=== PATIENT | female | born 1985 | race African-American/Black ===

== ENCOUNTER 2017-02-04 16:19 | Emergency (ER) | payer OTHER ==
[~2017-02-04] VITALS: Ht 167.6 cm; Wt 66.0 kg
[~2017-02-04 16:19] MED LIST: ERYT1O EACH EYE; POLY10O EACH EYE
[2017-02-04 16:21] VITALS: BP 123/77; PULSE 105; RESP 12; TEMP 98.8; O2SAT 100
== END 2017-02-04 21:28 | disposition left against medical advice (07) ==
LOC: NED 16:19
DX: R10.9 Unspecified abdominal pain (principal); Z53.21 Procedure and treatment not carried out due to patient leaving prior to being seen by health care provider
CPT/HCPCS: 99281

== ENCOUNTER 2017-02-28 16:18 | Emergency (ER) | payer OTHER ==
[2017-02-28 16:20] VITALS: BP 110/64; PULSE 116; RESP 12; TEMP 101.8; O2SAT 99
[2017-02-28 17:36] LABS: AUTOMATED NEUTROPHIL # 6.4 TH/MM3 (1.8-7.7); BASOPHIL % 0.5 % (0.0-2.0); EOSINOPHIL # 0.1 TH/MM3 (0-0.4); EOSINOPHIL % 0.8 % (0.0-4.0); HEMATOCRIT 32.8 % (35.0-46.0); HEMO FLAGS DIFF FINAL; LYMPH % 13.8 % (9.0-44.0); LYMPHOCYTE # 1.2 TH/MM3 (1.0-4.8); MEAN CELL VOLUME 83.8 FL (80.0-100.0); MEAN CORPUSCULAR HEMOGLOBIN 29.1 PG (27.0-34.0); MEAN CORPUSCULAR HGB CONC 34.7 % (32.0-36.0); MONO % 9.1 % (0.0-8.0); NEUT % 75.8 % (16.0-70.0); PLATELET COUNT 322 TH/MM3 (150-450); RED BLOOD COUNT 3.92 MIL/MM3 (4.00-5.30); RED CELL DISTRIBUTION WIDTH 14.4 % (11.6-17.2); WHITE BLOOD COUNT 8.4 TH/MM3 (4.0-11.0)
[2017-02-28 17:44] LABS: APTT (PATIENT) 31.1 SEC (24.3-30.1); PROTHROMBIN TIME - PATIENT 11.3 SEC (9.8-11.6)
[2017-02-28 17:50] LABS: BACTERIA, URINE MOD /hpf; BLOOD, URINE MOD (NEG); GLUCOSE,URINE NEG (NEG); HYALINE CAST, URINE 3 /lpf (RARE); KETONE, URINE 10 mg/dL (NEG); MUCUS URINE FEW /lpf (OCC); NITRITE,URINE POS (NEG); PH, URINE 5.5 (5.0-8.5); SQUAMOUS EPITHELIAL CELL URINE <1 /hpf (0-5); URINE COLOR YELLOW (YELLW/STRAW)
[2017-02-28 17:53] LABS: COMMENT (UR) CATH-CULTURE IND; CULTURE IF INDICATED CATH CULTURE IND
[2017-02-28 18:01] LABS: ALT (GPT) 18 U/L (10-53); ANION GAP 8 MEQ/L (5-15); AST (GOT) 9 U/L (15-37); BICARBONATE 27.1 MEQ/L (21.0-32.0); BLOOD UREA NITROGEN 7 MG/DL (7-18); CHLORIDE 99 MEQ/L (98-107); GLOMERULAR FILTRATION RATE 93 ML/MIN (>89); SODIUM (NA) 134 MEQ/L (136-145)
[2017-02-28 18:03] LABS: ALKALINE PHOSPHATASE 58 U/L (45-117); TOTAL BILIRUBIN ADULT 0.5 MG/DL (0.2-1.0)
--- NOTE | 2017-02-28 18:14 | RADRPT ---
EXAM DATE/TIME: 02/28/2017 17:55 [place] COMPARISON: No previous studies available for comparison. INDICATIONS : Fever, headache and neck pain MEDICAL HISTORY : None. SURGICAL HISTORY : None. ENCOUNTER: Initial ACUITY: 4 - 6 days PAIN SCORE: 0/10 LOCATION: chest FINDINGS: PA and lateral views of the chest demonstrate the lungs to be symmetrically aerated without evidence of mass, infiltrate or effusion. The cardiomediastinal contours are unremarkable. Osseous structure s are intact. CONCLUSION: No acute cardiopulmonary process. Babatunde Francis MD on February 28, 2017 at 18:11 Board Certified Radiologist. This report was verified electronically.
[2017-02-28] MEDS ORDERED: SODIUM CHLOR 0.9% 1000 ML INJ 1,000 ML IV SCH (18:26)
[2017-02-28] MEDS ORDERED: ONDANSETRON HCL 4 MG/2 ML VIAL IVP ONE (18:30)
[2017-02-28] MEDS ORDERED: ACETAMINOPHEN 500 MG CPLT PO ONE (18:30)
[2017-02-28 18:44] VITALS: PULSE 93; RESP 16; O2SAT 100
[2017-02-28] MEDS ORDERED: cefTRIAXone INJ 1,000 MG in SODIUM CHLORIDE 0.9% INJ 100 ML IV ONE (18:45)
--- NOTE | 2017-02-28 19:06 | PD ---
HPI Chief Complaint: Cold / Flu Symptoms Time Seen by Provider: 18:09 Travel History International Travel<30 days: No Contact w/Intl Traveler<30days: No Traveled to known affect area: No History of Present Illness HPI 31 YO F presents to the ED for evaluation of 4 day history of chills, body aches , abdominal cramping, full sensation of the bladder. Patient endorses associated nausea. She endorses urinary urgency with low urine output. She states that she has had a posterior headache today. Headache worsened by range of motion of the neck. She endorses chills today. She denies vision changes, dizziness, shortness of breath, chest pain, cough, vaginal discharge, vaginal odor, back pain. She denies risk of , states that she has an IUD and is currently menstruating. She treated with Advil PM with no improvement in her symptoms. PFSH Past Medical History Diminished Hearing: No Immunizations Current: Yes Tetanus Vaccination: > 5 Years Influenza Vaccination: No ?: Not LMP: CURRENT Past Surgical History Surgical History: No Previous Surgery Abdominal Surgery: Yes ( ) Section: Yes Social History Alcohol Use: No Tobacco Use: No Substance Use: Yes (THC OCCASIONAL ) Allergies-Medications (Allergen,Severity, Reaction): Coded Allergies: No Known Allergies (Verified Allergy, Unknown, 02/28/17) Reported Meds & Prescriptions Reported Meds & Active Scripts Active Macrobid (Nitrofurantoin Monoh/Nitrofur Macro) 100 Mg Cap 100 Mg PO BID 7 Days Review of Systems Except as stated in HPI: all other systems reviewed are Neg Physical Exam Narrative GENERAL: Well-nourished, well-developed nontoxic-appearing black female in no acute distress. SKIN: Focused skin assessment warm/dry. HEAD: Normocephalic. EYES: No scleral icterus. No injection or drainage. NECK: Supple, trachea midline. No JVD or lymphadenopathy. No midline tenderness to palpation. No nuchal rigidity. CARDIOVASCULAR: Regular rate and rhythm without murmurs, gallops, or rubs. RESPIRATORY: Breath sounds clear and equal bilaterally. No accessory muscle use. GASTROINTESTINAL: Abdomen soft, nondistended. Tender to palpation in the suprapubic region. Active bowel sounds. MUSCULOSKELETAL: No cyanosis, or edema. BACK: Nontender without obvious deformity. No CVA tenderness. Data Data Last Documented VS Vital Signs Date Time Temp Pulse Resp B/P (MAP) Pulse Ox O2 Delivery O2 Flow Rate FiO2 02/28/17 21:06 02/28/17 20:31 89 20 100 Room Air 02/28/17 16:20 101.8 Orders Orders Sepsis Workup Initiated (02/28/17 ) Complete Blood Count With Diff (02/28/17 16:44) Comprehensive Metabolic Panel (02/28/17 16:44) Prothrombin Time / Inr (Pt) (02/28/17 16:44) Act Partial Throm Time (Ptt) (02/28/17 16:44) Lactic Acid Sepsis Protocol (02/28/17 16:44) Urinalysis - C+S If Indicated (02/28/17 16:44) Influenzae A/B Antigen (02/28/17 16:44) Blood Culture (02/28/17 16:44) Chest, Pa & Lat (02/28/17 16:44) Ed Urine Pregnancytest Poc (02/28/17 16:44) Urine Culture (02/28/17 16:55) Iv Access Insert/Monitor (02/28/17 18:26) Ecg Monitoring (02/28/17 18:26) Oximetry (02/28/17 18:26) Ondansetron Inj (Zofran Inj) (02/28/17 18:30) Sodium Chlor 0.9% 1000 Ml Inj (Ns 1000 M (02/28/17 18:26) Acetaminophen (Tylenol) (02/28/17 18:30) Ceftriaxone Inj (Rocephin Inj) (02/28/17 18:45) Potassium Chloride (Kcl) (02/28/17 19:30) Ed Discharge Order (02/28/17 20:18) Labs Laboratory Tests Test 02/28/17 16:55 02/28/17 17:03 Urine Color YELLOW Urine Turbidity HAZY Urine pH 5.5 Urine Specific [place] 1.009 Urine Protein 30 mg/dL Urine Glucose (UA) NEG mg/dL Urine Ketones 10 mg/dL Urine Occult Blood MOD Urine Nitrite POS Urine Bilirubin NEG Urine Urobilinogen LESS THAN 2.0 MG/DL Urine Leukocyte Esterase LARGE Urine RBC 9 /hpf Urine WBC 152 /hpf Urine WBC Clumps FEW Urine Squamous Epithelial Cells <1 /hpf Urine Bacteria MOD /hpf Urine Hyaline Casts 3 /lpf Urine Mucus FEW /lpf Microscopic Urinalysis Comment CATH-CULTURE IND White Blood Count 8.4 TH/MM3 Red Blood Count 3.92 MIL/MM3 Hemoglobin 11.4 GM/DL Hematocrit 32.8 % Mean Corpuscular Volume 83.8 FL Mean Corpuscular Hemoglobin 29.1 PG Mean Corpuscular Hemoglobin Concent 34.7 % Red Cell Distribution Width 14.4 % Platelet Count 322 TH/MM3 Mean Platelet Volume 8.1 FL Neutrophils (%) (Auto) 75.8 % Lymphocytes (%) (Auto) 13.8 % Monocytes (%) (Auto) 9.1 % Eosinophils (%) (Auto) 0.8 % Basophils (%) (Auto) 0.5 % Neutrophils # (Auto) 6.4 TH/MM3 Lymphocytes # (Auto) 1.2 TH/MM3 Monocytes # (Auto) 0.8 TH/MM3 Eosinophils # (Auto) 0.1 TH/MM3 Basophils # (Auto) 0.0 TH/MM3 CBC Comment DIFF FINAL Differential Comment Prothrombin Time 11.3 SEC Prothromb Time International Ratio 1.0 RATIO Activated Partial Thromboplast Time 31.1 SEC Blood Urea Nitrogen 7 MG/DL Creatinine 0.87 MG/DL Random Glucose 86 MG/DL Total Protein 8.3 GM/DL Albumin 3.5 GM/DL Calcium Level 8.6 MG/DL Alkaline Phosphatase 58 U/L Aspartate Amino Transf (AST/SGOT) 9 U/L Alanine Aminotransferase (ALT/SGPT) 18 U/L Total Bilirubin 0.5 MG/DL Sodium Level 134 MEQ/L Potassium Level 3.0 MEQ/L Chloride Level 99 MEQ/L Carbon Dioxide Level 27.1 MEQ/L Anion Gap 8 MEQ/L Estimat Glomerular Filtration Rate 93 ML/MIN Lactic Acid Level 1.1 mmol/L [facility] Medical Decision Making Medical Screen Exam Complete: Yes Emergency Medical Condition: Yes Differential Diagnosis Cystitis versus pyelonephritis versus versus cephalgia versus other Narrative Course 31 YO F presents to the ED for evaluation of 4 day history of chills, body aches , abdominal cramping, full sensation of the bladder. Patient endorses associated nausea, urinary urgency with low urine output. She endorses chills and posterior headache today. She denies risk of , states that she has an IUD and is currently menstruating. Patient's febrile, temperature 101.8 , pulse 116 on presentation. Physical exam reveals a nontoxic-appearing black female in no acute distress. There is some mild suprapubic tenderness but the remaining physical exam is otherwise unremarkable. Sepsis workup was initiated in triage. Blood cultures were obtained. IV was established. Patient was administered a gram of Tylenol by mouth, 1 L normal saline and 4 mg Zofran IV. WBC 8.4. Hemoglobin 11.4. BUN 7, creatinine 0.87. Potassium 3.0 Lactic 1.8 UA: Hazy, nitrite positive. Moderate occult blood. Large leukocyte esterase. 152 wbc's, few clumps. Moderate bacteria. Culture pending. Patient was administered 1 g Rocephin IV and 40 mEq potassium by mouth. On recheck patient is sleeping, reports improvement of her symptoms. This is UTI. Patient was prescribed Macrobid 100 mg twice a day 7 days. She is instructed to take all the medication as prescribed, continue with Tylenol as needed for fever, follow-up with her primary care provider, return for worsening symptoms. Patient indicated understanding of instructions and is agreeable with this care plan. She is stable and discharged home. Diagnosis Primary Impression: Urinary tract infection Qualified Codes: N30.01 - Acute cystitis with hematuria Referrals: Primary Care Physician Patient Instructions: General Instructions, Urinary Tract Infection in Women ( ED) Additional Instructions: Rest, hydrate. Return to normal, gentle activities as tolerated. Tickle antibiotics as prescribed, even if her symptoms resolve. Take [id number] medications as described on the label, as needed, for continued pain. Follow-up with the primary care provider. Return to the ED for any urgent or emergent medical condition. Med/Other Pt SpecificInfo: Prescription(s) given Scripts Nitrofurantoin Monohydrate Macrocrystals (Macrobid) 100 Mg Cap 100 MG PO BID for Infection for 7 Days, #14 CAP 0 Refills Prov: Evonne Clifton MD 02/28/17 Disposition: 01 DISCHARGE HOME Condition: Stable Estefany Brantley Feb 28, 2017 19:06
[2017-02-28] MEDS ORDERED: POTASSIUM CHLORIDE 20 MEQ CONTROLLED RELEASE TAB PO ONE (19:30)
[2017-02-28] MEDS ORDERED: MACR100C2 PO (20:17)
[2017-02-28 20:31] VITALS: BP 97/61; PULSE 89; RESP 20; O2SAT 100
== END 2017-02-28 21:08 | disposition home or self-care (01) ==
LOC: NEPC 16:18
DX: N39.0 Urinary tract infection, site not specified (principal); B96.20 Unspecified Escherichia coli [E. coli] as the cause of diseases classified elsewhere; R11.0 Nausea; R51 Headache
CPT/HCPCS: 71020; 80053; 81001; 83605; 84703; 85025; 85610; 85730; 87040; 87077; 87086; 87186; 87804; 96361; 96374; 96375; 99284; J0696; J2405; J7030

== ENCOUNTER 2017-12-09 09:18 | Observation (INO) ==
[2017-12-09] MEDS ORDERED: Acetaminophen 325 MG Tablet PO ONE (09:38)
[2017-12-09] MEDS ORDERED: Sod Chloride 0.9% Inj 1,000 ML IV.SIG SCH ×2 (09:45→10:45)
--- NOTE | 2017-12-09 10:17 | XR ---
EXAM DATE: 12/09/2017 10:12 AM EDT AGE/SEX: 32 years / Female INDICATIONS: Sickle cell crisis. Fever, body pains, nausea. CLINICAL DATA: This is the patient's initial encounter. Patient reports that signs and symptoms have been present for 1 day and indicates a pain score of 10/10. MEDICAL/SURGICAL HISTORY: Sickle Cell disease. None. COMPARISON: [facility] [place], CHEST PA & LAT, 02/28/2017. . FINDINGS: A single AP view of the chest demonstrates the lungs to be symmetrically aerated without evidence of mass, infiltrate or effusion. The cardiomediastinal contours are unremarkable. Osseous structures a re intact. CONCLUSION: No acute cardiopulmonary disease. Electronically signed by: Buster Niño MD 12/09/2017 10:16 AM EDT
[2017-12-09 10:24] LABS: Baso # (Auto) 0.2 th/mm3 (0.0-0.2); Baso % (Auto) 0.7 % (0.0-2.0); Eos % (Auto) 0.1 % (0.0-4.0); Hematocrit 34.1 % (35.0-46.0); Hemoglobin 11.7 gm/dL (11.6-15.3); Lymph # (Auto) 0.5 th/mm3 (1.0-4.8); Lymph % (Auto) 2.3 % (9.0-44.0); Mean Corpuscular HGB Conc 34.4 % (32.0-36.0); Mean Corpuscular Hemoglobin 28.9 pg (27.0-34.0); Mean Platelet Volume 7.9 fL (7.0-11.0); Mono # (Auto) 1.2 th/mm3 (0.0-0.9); Mono % (Auto) 5.2 % (0.0-8.0); Neut # (Auto) 20.4 th/mm3 (1.8-7.7); Neut % (Auto) 91.7 % (16.0-70.0); Platelet Count 276 th/mm3 (150-450); Red Blood Count 4.06 mil/mm3 (4.00-5.30); Red Cell Distribution Width 13.7 % (11.6-17.2); White Blood Count 22.2 th/mm3 (4.0-11.0)
[2017-12-09 10:29] LABS: Bacteria,Urine Many /hpf; Bilirubin,Urine Negative (Negative); Clarity,Urine Cloudy (Clear); Color,Urine Yellow (Yellw/Straw); Glucose,Urine (UA) Negative (Negative); Leukocyte Esterase,Urine Large (Negative); Nitrite,Urine Negative (Negative); Specific Gravity,Urine 1.012 (1.002-1.035); Squamous Epithelial Cell,Urine 1 /hpf (0-5); Transitional Epi Cells,Urine 1 /hpf
[2017-12-09] MEDS ORDERED: Vancomycin Inj 1,000 MG in Sodium Chlor 0.9% Inj 250 ML IV.SIG STA (10:34)
[2017-12-09] MEDS ORDERED: Piperacil/Tazo 4.5 GM Premix 4.5 GM/100 ML BAG IV.SIG STA (10:34)
[2017-12-09 10:53] LABS: Alanine Aminotransferase 15 U/L (10-53); Albumin 3.3 g/dL (3.4-5.0); Anion Gap 13 meq/L (5-15); Aspartate Aminotransferase 14 U/L (15-37); Blood Urea Nitrogen 8 mg/dL (7-18); Calcium 8.5 mg/dL (8.5-10.1); Carbon Dioxide 22.2 meq/L (21.0-32.0); Chloride 100 meq/L (98-107); Glomerular Filtration Rate 64 mL/min (>89); Glucose,Random 108 mg/dL (74-106); Potassium 3.4 meq/L (3.5-5.1); Sodium 135 meq/L (136-145)
[2017-12-09 10:55] LABS: Alkaline Phosphatase 70 U/L (45-117); Total Protein 8.1 g/dL (6.4-8.2)
--- NOTE | 2017-12-09 12:21 | ED ---
HPI General Chief Complaint: Fever Stated Complaint: Pain All Over Time Seen by Provider: 12/09/17 09:34 Source: patient Mode of arrival: ambulatory Limitations: no limitations History of Present Illness HPI Narrative: Patient is a 32-year-old female who presents to the emergency room with complaints of fevers and chills. Patient reports that 3 days ago, she began to have her period, patient reports that since then she has not been feeling well. Patient reports that she feels weak all over, reports that she has been having body aches, reports that she did have nausea. Patient reports that she is also been having mild headaches, no neck pain, denies any chest pain or shortness of breath, denies any abdominal pain, denies being around any sick contacts. Denies any cough or congestion. Patient denies any recent travels or trips, patient with no other complaints. Related Data Home Medications Medication Instructions Recorded Confirmed No Known Home Medications 12/09/17 12/09/17 Allergies Allergy/AdvReac Type Severity Reaction Status Date / Time No Known Allergies Allergy Unknown Uncoded 02/28/17 18:51 Review of Systems ROS: all other systems reviewed are negative [facility] Medical History Medical History Patient denies medical problems (Acute) Surgical History Surgical History Previous section (Acute) Social History Social History Substance History: No History of Abuse Smoking Status: Never smoker How Often Do You Have a Drink Containing Alcohol: Never Recent Travel in [facility] within the Last 8 Weeks: No Recent Out of Country Travel within the Last 8 Weeks: No Immunization History Tetanus Immunization: >5 Years Exam Narrative Exam Narrative: GENERAL: moderate distress SKIN: Focused skin assessment warm/dry. HEAD: Atraumatic. Normocephalic. EYES: Pupils equal and round. No scleral icterus. No injection or drainage. ENT: No nasal bleeding or discharge. Mucous membranes pink and moist. NECK: Trachea midline. No JVD. CARDIOVASCULAR: tachycardic. No murmur appreciated. RESPIRATORY: No accessory muscle use. Clear to auscultation. Breath sounds equal bilaterally. GASTROINTESTINAL: Abdomen soft, non-tender, nondistended. Hepatic and splenic margins not palpable. MUSCULOSKELETAL: No obvious deformities. No clubbing. No cyanosis. No edema. NEUROLOGICAL: Awake and alert. No obvious cranial nerve deficits. Motor grossly within normal limits. Normal speech. PSYCHIATRIC: Appropriate mood and affect; insight and judgment normal. Course Initial Documented Vital Signs Temperature 102.8 F H 12/09/17 09:21 Pulse Rate 135 H 12/09/17 09:21 Respiratory Rate 20 12/09/17 09:21 Blood Pressure 119/69 12/09/17 09:21 Pulse Oximetry 99 12/09/17 09:21 Last Documented Vital Signs Temperature 99.9 F H 12/09/17 12:29 Pulse Rate 102 H 12/09/17 12:29 Respiratory Rate 20 12/09/17 12:29 Blood Pressure 90/54 L 12/09/17 12:29 Pulse Oximetry 100 12/09/17 12:29 Medical Decision Making MDM Narrative Medical decision making narrative: During the course of the patients emergency department visit, the patients history, examination, and differential diagnosis were reviewed with the patient. The patient was placed on a pick up man with oximetry and frequent blood pressure monitoring. The patient had an IV access obtained and blood work sent for analysis. The patient was initially provided IV fluids as well as Tylenol. Patient does have a 22,000 white blood cell count, she is tachycardic with a heart rate 125 and a temperature of 102.8, patient meets SIRS criteria, she has been pancultured, she does not have a clear source of infection. lactic acid UA positive for large leuk esterase Patient was given Zosyn as well as vancomycin initially as she had SIRS criteria , her ua is positive for a UTI - patient with most likely urosepsis - she will require admission to the hospital for IV antibiotics. Case reviewed with Dr. Esteban who accepts pt to service Medical Screen Exam Complete: Yes Emergency Medical Condition: Yes Differential Diagnosis Differential Diagnosis: uti, Lab Data Result diagrams: 12/09/17 10:00 12/09/17 10:00 POC Results POC Urine Results Negative Lab Results 12/09/17 12/09/17 12/09/17 Range/Units 10:00 10:00 10:03 WBC 22.2 H (4.0-11.0) th/mm3 RBC 4.06 (4.00-5.30) mil/mm3 Hgb 11.7 (11.6-15.3) gm/dL Hct 34.1 L (35.0-46.0) % MCV 84.0 (80.0-100.0) fL MCH 28.9 (27.0-34.0) pg MCHC 34.4 (32.0-36.0) % RDW 13.7 (11.6-17.2) % Plt Count 276 (150-450) th/mm3 MPV 7.9 (7.0-11.0) fL Neut % (Auto) 91.7 H (16.0-70.0) % Lymph % (Auto) 2.3 L (9.0-44.0) % [place] % (Auto) 5.2 (0.0-8.0) % Eos % (Auto) 0.1 (0.0-4.0) % Baso % (Auto) 0.7 (0.0-2.0) % Neut # (Auto) 20.4 H (1.8-7.7) th/mm3 Lymph # (Auto) 0.5 L (1.0-4.8) th/mm3 [place] # (Auto) 1.2 H (0.0-0.9) th/mm3 Eos # (Auto) 0.0 (0.0-0.4) th/mm3 Baso # (Auto) 0.2 (0.0-0.2) th/mm3 WBC Differential . Differential Comment Auto diff final Sodium 135 L (136-145) meq/L Potassium 3.4 L (3.5-5.1) meq/L Chloride 100 (98-107) meq/L Carbon Dioxide 22.2 (21.0-32.0) meq/L Anion Gap 13 (5-15) meq/L BUN 8 (7-18) mg/dL Creatinine 1.19 H (0.50-1.00) mg/dL Estimated GFR 64 L (>89) mL/min POC Glucose 116 H (68-110) mg/dl Random Glucose 108 H (74-106) mg/dL Lactic Acid (0.4-2.0) mmol/L Calcium 8.5 (8.5-10.1) mg/dL Total Bilirubin 0.7 (0.2-1.0) mg/dL AST 14 L (15-37) U/L ALT 15 (10-53) U/L Alkaline Phosphatase 70 (45-117) U/L Total Protein 8.1 (6.4-8.2) g/dL Albumin 3.3 L (3.4-5.0) g/dL Urine Color (Yellw/Straw) Urine Clarity (Clear) Urine pH (5.0-8.5) Ur Specific [place] (1.002-1.035) Urine Protein (Neg-Trace) mg/dL Urine Glucose (UA) (Negative) mg/dL Urine Ketones (Negative) mg/dL Urine Occult Blood (Negative) Urine Nitrate (Negative) Urine Bilirubin (Negative) Urine Urobilinogen (Less than 2) mg/dL Ur Leukocyte Esterase (Negative) Urine RBC (0-3) /hpf Urine WBC (0-5) /hpf Urine WBC Clumps (None) Ur Squamous Epith Cells (0-5) /hpf Ur Transition Epith Cell (None) /hpf Urine Bacteria (None) /hpf Micro UA Comment Ur Microscopic Review Urine Culture Comments 12/09/17 12/09/17 Range/Units 10:05 10:05 WBC (4.0-11.0) th/mm3 RBC (4.00-5.30) mil/mm3 Hgb (11.6-15.3) gm/dL Hct (35.0-46.0) % MCV (80.0-100.0) fL MCH (27.0-34.0) pg MCHC (32.0-36.0) % RDW (11.6-17.2) % Plt Count (150-450) th/mm3 MPV (7.0-11.0) fL Neut % (Auto) (16.0-70.0) % Lymph % (Auto) (9.0-44.0) % [place] % (Auto) (0.0-8.0) % Eos % (Auto) (0.0-4.0) % Baso % (Auto) (0.0-2.0) % Neut # (Auto) (1.8-7.7) th/mm3 Lymph # (Auto) (1.0-4.8) th/mm3 [place] # (Auto) (0.0-0.9) th/mm3 Eos # (Auto) (0.0-0.4) th/mm3 Baso # (Auto) (0.0-0.2) th/mm3 WBC Differential Differential Comment Sodium (136-145) meq/L Potassium (3.5-5.1) meq/L Chloride (98-107) meq/L Carbon Dioxide (21.0-32.0) meq/L Anion Gap (5-15) meq/L BUN (7-18) mg/dL Creatinine (0.50-1.00) mg/dL Estimated GFR (>89) mL/min POC Glucose (68-110) mg/dl Random Glucose (74-106) mg/dL Lactic Acid 1.3 (0.4-2.0) mmol/L Calcium (8.5-10.1) mg/dL Total Bilirubin (0.2-1.0) mg/dL AST (15-37) U/L ALT (10-53) U/L Alkaline Phosphatase (45-117) U/L Total Protein (6.4-8.2) g/dL Albumin (3.4-5.0) g/dL Urine Color Yellow (Yellw/Straw) Urine Clarity Cloudy H (Clear) Urine pH 5.0 (5.0-8.5) Ur Specific [place] 1.012 (1.002-1.035) Urine Protein 100 H (Neg-Trace) mg/dL Urine Glucose (UA) Negative (Negative) mg/dL Urine Ketones 80 or greater H (Negative) mg/dL Urine Occult Blood Large H (Negative) Urine Nitrate Negative (Negative) Urine Bilirubin Negative (Negative) Urine Urobilinogen Less than 2 (Less than 2) mg/dL Ur Leukocyte Esterase Large H (Negative) Urine RBC 43 H (0-3) /hpf Urine WBC (0-5) /hpf Urine WBC Clumps Many H (None) Ur Squamous Epith Cells 1 (0-5) /hpf Ur Transition Epith Cell 1 (None) /hpf Urine Bacteria Many H (None) /hpf Micro UA Comment Culture indicated Ur Microscopic Review Not Reportable Urine Culture Comments Culture indicated Imaging Data Radiologist's impression: Chest X-Ray 12/09/17 09:39 CONCLUSION: No acute cardiopulmonary disease. Discharge Plan Discharge Disposition Patient Disposition: 32 Still Patient Discharge Condition Condition: Serious Discharge Details Diagnosis: Sepsis Physicians Team ED Provider: Jennifer Mercado Primary Care Provider: Primary Care Physici,No Rxs /Orders / Referrals /Forms Prescriptions: No Action No Known Home Medications RF: 0 Status ED Status: With Doctor
[2017-12-09] MEDS: Heparin - SQ 10,000 UNITS/ML Vial SQ SCH (14:23)
[2017-12-09] MEDS: Sod Chloride 0.9% Inj 1,000 ML IV.CONT SCH (14:24)
--- NOTE | 2017-12-09 15:04 | P.HPIM ---
History of Present Illness Primary Care Physician: No Primary Care Physician Chief Complaint: Dysuria, suprapubic pain History of Present Illness: This patient is a 40-year-old female with a past medical history of sickle cell trait. She has a history of multiple UTIs and was previously seen at our facility in February 2017. At that time the patient's urine culture grew ESBL E. coli. She presents to our emergency department today with 3 day history of dysuria and mild suprapubic pain. She states that her symptoms began during her menstrual cycle. She will she states that she is sexually active with one partner and her symptoms usually begin a couple of days after intercourse. She also reports fevers and feeling weak. She denies any diarrhea or cough. She denies any pain in her extremities. She has also had poor appetite over the past few days because of her symptoms. Inpatient Certification: I certify that the inpatient services were ordered in accordance with Medicare regulations governing the order. This includes certification that hospital inpatient services are reasonable and necessary and in the case of services not specified as inpatient-only under 42 CFR 419.22(n), that they are appropriately provided as inpatient services in accordance to with the 2-midnight benchmark under 43 CFR 412.3(e) Review of Systems All other systems reviewed negative except as stated in HPI PMFSH - History History Provided By: Patient - Medical / Surgical Hx Neg / Unobtainable Medical Problems Denied: Yes - Medical History Medical History: Medical History (Last Reviewed 12/09/17 @ 12:19 by Jennifer Mercado) Patient denies medical problems - Surgical History Surgical History: Surgical History (Last Reviewed 12/09/17 @ 12:19 by Jennifer Mercado) Previous section - Family History Family History: Family History (Last Updated 12/09/17 @ 15:18 by Nella Pinzon MD) Other Family history of diabetes mellitus Family history of hypertension - Tobacco History Second Hand Smoke Exposure: No Tobacco Use In Past 30 Days: No Smoking Status: Never smoker - Alcohol History How Often Do You Have a Drink Containing Alcohol: Never - Substance Use History Substance History: No History of Abuse - Travel History Recent Travel in the [place] Within the Last 8 Weeks: No Recent Travel Out of the Country Within the Last 8 Weeks: No - Immunization History Tetanus Immunization: >5 Years Medications and Allergies Active Medications: Active Medications Acetaminophen (Tylenol) 650 mg PO Q4H PRN PRN Reason: PAIN 1-10 AND/OR FEVER >101F Al Hydroxide/Mg Hydroxide (Milk Of Gustabo Rodriguez) 30 ml PO Q12H PRN PRN Reason: Mild Constipation Heparin Sodium (Porcine) (Heparin Inj) 5,000 units SQ Q12H [place] Last Admin: 12/09/17 14:23 Dose: 5,000 units Sodium Chloride (Ns Inj) 1,000 mls @ 0 mls/hr IV.SIG BOLUS [place] Stop: 12/10/17 09:46 Last Infusion: 12/09/17 11:12 Dose: Infused Sodium Chloride (Ns Inj) 1,000 mls @ 0 mls/hr IV.SIG BOLUS [place] Last Infusion: 12/09/17 12:28 Dose: Infused Sodium Chloride (Ns Inj) 1,000 mls @ 100 mls/hr IV.CONT .Q10H [place] Last Admin: 12/09/17 14:24 Dose: 100 mls/hr Ceftriaxone Sodium 1,000 mg/ (Sodium Chloride) 100 mls @ 200 mls/hr IV.SIG Q24H [place] Lactobacillus Acidophilus (Lactinex) 1 tab PO TID [place] Ondansetron HCl (Zofran Inj) 4 mg IV.PUSH Q6H PRN PRN Reason: NAUSEA OR VOMITING Allergies Allergy/AdvReac Type Severity Reaction Status Date / Time No Known Allergies Allergy Unknown Uncoded 02/28/17 18:51 Home Medications Medication Instructions Recorded Confirmed Type No Known Home Medications 12/09/17 12/09/17 History Exam Vital signs: Vital Signs 12/09/17 09:21 12/09/17 10:12 12/09/17 12:29 Temperature 102.8 F H 99.9 F H Pulse Rate 135 H 125 H 102 H Respiratory Rate 20 24 20 Blood Pressure 119/69 111/68 90/54 L Pulse Oximetry 99 100 100 Intake & Output 12/08/17 12/09/17 12/09/17 18:59 06:59 18:59 Intake Total 2350 / 2350 Balance 2350 / 2350 Weight 68.039 kg Intake: IV 2350 / 2350 Zosyn 4.5 GM Premix 4.5 gm In 100 / 100 100 ml @ 200 mls/hr IV.SIG STAT [facility] Rx#:[id number] NS Inj 1,000 ML @ Wide Open IV. 2000 / 2000 SIG BOLUS [place] Rx#:[id number] Vancomycin Inj 1,000 MG In NS 250 / 250 Inj 250 ML @ 250 mls/hr IV.SIG STAT ST[facility] Rx#:[id number] Narrative: General patient in no acute distress HEENT extraocular movements are intact, clear oropharyngeal mucosa, no JVD Cardiovascular S1-S2 audible, RRR, tachycardic Respiratory clear to auscultation bilaterally Abdomen soft, mild suprapubic pain, nondistended, normal bowel sounds, no CVA tenderness Extremities no edema 2+ distal pulses in bilateral upper and lower extremities Neuro cranial nerves II through XII intact Results - Labs CBC & Chem 7: 12/09/17 10:00 12/09/17 10:00 Labs: Short CBC 12/09/17 Range/Units 10:00 WBC 22.2 H (4.0-11.0) th/mm3 Hgb 11.7 (11.6-15.3) gm/dL Hct 34.1 L (35.0-46.0) % Plt Count 276 (150-450) th/mm3 BMP 12/09/17 10:00 Sodium 135 L Potassium 3.4 L Chloride 100 Carbon Dioxide 22.2 BUN 8 Creatinine 1.19 H Calcium 8.5 Liver Function 12/09/17 Range/Units 10:00 Total Bilirubin 0.7 (0.2-1.0) mg/dL AST 14 L (15-37) U/L ALT 15 (10-53) U/L Alkaline Phosphatase 70 (45-117) U/L Albumin 3.3 L (3.4-5.0) g/dL Urine 12/09/17 Range/Units 10:05 Urine Color Yellow (Yellw/Straw) Urine Clarity Cloudy H (Clear) Urine pH 5.0 (5.0-8.5) Ur Specific [place] 1.012 (1.002-1.035) Urine Protein 100 H (Neg-Trace) mg/dL Urine Glucose (UA) Negative (Negative) mg/dL - Imaging Impressions Chest X-Ray 12/09/17 09:39 CONCLUSION: No acute cardiopulmonary disease. Caprini VTE Risk Assessment Caprini VTE Risk Assessment: No/Low Risk (score <= 1) Caprini Risk Assessment Model: Point Value = 1 Point Value = 2 Point Value = 3 Point Value = 5 Age 41-60 Minor surgery BMI > 25 kg/m2 Swollen legs Varicose veins or History of unexplained or recurrent spontaneous Oral contraceptives or hormone replacement Sepsis (< 1 month) Serious lung disease, including pneumonia (< 1 month) Abnormal pulmonary function Acute myocardial infarction Congestive heart failure (< 1 month) History of inflammatory bowel disease Medical patient at bed rest Age 61-74 Arthroscopic surgery Major open surgery (> 45 min) Laparoscopic surgery (> 45 min) Malignancy Confined to bed (> 72 hours) Immobilizing plaster cast Central venous access Age >= 75 History of VTE Family history of VTE Factor V Leiden Prothrombin [id number] Lupus anticoagulant Anticardiolipin antibodies Elevated serum homocysteine Heparin-induced thrombocytopenia Other congenital or acquired thrombophilia Stroke (< 1 month) Elective arthroplasty Hip, pelvis, or leg fracture Acute spinal cord injury (< 1 month) Prophylaxis Regimen: Total Risk Factor Score Risk Level Prophylaxis Regimen 0-1 Low Early ambulation 2 Moderate Order ONE of the following: *Sequential Compression Device (SCD) *Heparin 5000 units SQ BID 3-4 Higher Order ONE of the following medications: *Heparin 5000 units SQ TID *Enoxaparin/Lovenox 40 mg SQ daily (WT < 150 kg, CrCl > 30 mL/min) *Enoxaparin/Lovenox 30 mg SQ daily (WT < 150 kg, CrCl > 10-29 mL/min) *Enoxaparin/Lovenox 30 mg SQ BID (WT < 150 kg, CrCl > 30 mL/min) AND/OR *Sequential Compression Device (SCD) 5 or more Highest Order ONE of the following medications: *Heparin 5000 units SQ TID (Preferred with Epidurals) *Enoxaparin/Lovenox 40 mg SQ daily (WT < 150 kg, CrCl > 30 mL/min) *Enoxaparin/Lovenox 30 mg SQ daily (WT < 150 kg, CrCl > 10-29 mL/min) *Enoxaparin/Lovenox 30 mg SQ BID (WT < 150 kg, CrCl > 30 mL/min) AND *Sequential Compression Device (SCD) Assessment and Plan - Plan This patient is a 32-year-old female with a history of sickle cell trait and multiple UTIs in the past. She had a UTI in February 2017 which was positive for ESBL E. coli. She presented today to our emergency department with complaints of suprapubic tenderness and dysuria that has been ongoing for the past few days. She was found to be febrile tachycardic urinalysis was positive for UTI. 1. Sepsis secondary to urinary tract infection The patient's presented with the symptoms mentioned above. Sepsis protocol was initiated she has received 2 L of IV fluids. She will be continued on IV fluids. Tylenol will be given as needed for fever. Patient received Zosyn and vancomycin in the emergency department she will be continued on IV Invanz as she has a history of ESBL E. coli. Blood cultures were ordered and are currently pending. Urine culture is pending.
[2017-12-09] MEDS: Lactobacillus Acidophilus/L. Spores Tablet PO SCH (17:38)
[2017-12-09] MEDS: Acetaminophen 325 MG Tablet PO PRN ×2 (17:39→21:55)
[2017-12-10] MEDS: Heparin - SQ 10,000 UNITS/ML Vial SQ SCH ×2 (01:09→15:13)
[2017-12-10] MEDS: Acetaminophen 325 MG Tablet PO PRN ×4 (05:05→20:55)
[2017-12-10 09:04] LABS: Baso % (Auto) 0.4 % (0.0-2.0); Eos # (Auto) 0.1 th/mm3 (0.0-0.4); Eos % (Auto) 0.5 % (0.0-4.0); Hematocrit 27.3 % (35.0-46.0); Hemoglobin 9.8 gm/dL (11.6-15.3); Lymph # (Auto) 0.8 th/mm3 (1.0-4.8); Lymph % (Auto) 6.4 % (9.0-44.0); Mean Corpuscular HGB Conc 35.8 % (32.0-36.0); Mean Corpuscular Hemoglobin 29.9 pg (27.0-34.0); Mean Corpuscular Volume 83.6 fL (80.0-100.0); Mean Platelet Volume 8.3 fL (7.0-11.0); Mono # (Auto) 1.1 th/mm3 (0.0-0.9); Mono % (Auto) 9.1 % (0.0-8.0); Neut # (Auto) 10.4 th/mm3 (1.8-7.7); Neut % (Auto) 83.6 % (16.0-70.0); Platelet Count 263 th/mm3 (150-450); Red Blood Count 3.27 mil/mm3 (4.00-5.30); Red Cell Distribution Width 13.8 % (11.6-17.2); White Blood Count 12.4 th/mm3 (4.0-11.0)
[2017-12-10] MEDS: Lactobacillus Acidophilus/L. Spores Tablet PO SCH ×3 (09:30→18:51)
[2017-12-10 09:38] LABS: Alanine Aminotransferase 24 U/L (10-53); Albumin 2.6 g/dL (3.4-5.0); Alkaline Phosphatase 58 U/L (45-117); Anion Gap 10 meq/L (5-15); Aspartate Aminotransferase 28 U/L (15-37); Blood Urea Nitrogen 5 mg/dL (7-18); Calcium 7.5 mg/dL (8.5-10.1); Carbon Dioxide 20.8 meq/L (21.0-32.0); Chloride 111 meq/L (98-107); Glomerular Filtration Rate 88 mL/min (>89); Glucose,Random 102 mg/dL (74-106); Potassium 3.4 meq/L (3.5-5.1); Sodium 142 meq/L (136-145); Total Protein 6.4 g/dL (6.4-8.2)
[2017-12-10] MEDS ORDERED: Sod Chloride 0.9% Inj 1,000 ML IV.SIG SCH (10:00)
--- NOTE | 2017-12-10 10:03 | P.PNIM ---
Subjective Interval history: No current complaints from the patient. Physical Exam Vital signs: Vital Signs 12/09/17 10:12 12/09/17 12:29 12/09/17 15:00 Temperature 99.9 F H Pulse Rate 125 H 102 H 102 H Respiratory Rate 24 20 20 Blood Pressure 111/68 90/54 L 97/64 L Pulse Oximetry 100 100 12/09/17 16:00 12/09/17 20:00 12/10/17 00:00 Temperature 98.5 F 99 F 101.7 F H Pulse Rate 116 H 114 H 122 H Respiratory Rate 18 20 18 Blood Pressure 115/68 96/53 L 94/56 L Pulse Oximetry 99 98 97 12/10/17 04:00 12/10/17 06:09 12/10/17 08:00 Temperature 102.2 F H 99.0 F 98.6 F Pulse Rate 112 H 97 H Respiratory Rate 14 20 Blood Pressure 97/55 L 86/54 L Pulse Oximetry 98 99 Intake & Output 12/09/17 12/10/17 12/10/17 18:59 06:59 18:59 Intake Total 2450 / 2450 2421 / 2421 Balance 2450 / 2450 2421 / 2421 Weight 68.039 kg 73.7 kg Intake: IV 2450 / 2450 1000 / 1000 NS Inj 1,000 ML @ 100 mls/hr IV 1000 / 1000 .CONT .Q10H [place] Rx#:[id number] INVanz Inj 1,000 MG In NS Inj 100 / 100 100 ML @ 100 mls/hr IV.SIG Q24H [place] Rx#:[id number] Zosyn 4.5 GM Premix 4.5 gm In 100 / 100 100 ml @ 200 mls/hr IV.SIG STAT STA Rx#:[id number] NS Inj 1,000 ML @ Wide Open IV. 1999 / 1999 SIG BOLUS [place] Rx#:[id number] Vancomycin Inj 1,000 MG In NS 250 / 250 Inj 250 ML @ 250 mls/hr IV.SIG STAT STA Rx#:[id number] Oral 1421 / 1421 Other: # Voids 5 Narrative: General patient in no acute distress HEENT extraocular movements are intact, clear oropharyngeal mucosa, no JVD Cardiovascular S1-S2 audible, tachycardic Respiratory clear to auscultation bilaterally Abdomen soft, nontender, nondistended, normal bowel sounds Extremities no edema 2+ distal pulses in bilateral upper and lower extremities Results - Labs CBC & Chem 7: 12/10/17 08:00 12/10/17 08:00 Laboratory Results - last 24 hr 12/09/17 12/09/17 12/09/17 10:00 10:00 10:03 WBC 22.2 H RBC 4.06 Hgb 11.7 Hct 34.1 L MCV 84.0 MCH 28.9 MCHC 34.4 RDW 13.7 Plt Count 276 MPV 7.9 Neut % (Auto) 91.7 H Lymph % (Auto) 2.3 L [place] % (Auto) 5.2 Eos % (Auto) 0.1 Baso % (Auto) 0.7 Neut # (Auto) 20.4 H Lymph # (Auto) 0.5 L [place] # (Auto) 1.2 H Eos # (Auto) 0.0 Baso # (Auto) 0.2 WBC Differential . Differential Comment Auto diff final Sodium 135 L Potassium 3.4 L Chloride 100 Carbon Dioxide 22.2 Anion Gap 13 BUN 8 Creatinine 1.19 H Estimated GFR 64 L POC Glucose 116 H Random Glucose 108 H Lactic Acid Calcium 8.5 Total Bilirubin 0.7 AST 14 L ALT 15 Alkaline Phosphatase 70 Total Protein 8.1 Albumin 3.3 L Urine Color Urine Clarity Urine pH Ur Specific [place] Urine Protein Urine Glucose (UA) Urine Ketones Urine Occult Blood Urine Nitrate Urine Bilirubin Urine Urobilinogen Ur Leukocyte Esterase Urine RBC Urine WBC Urine WBC Clumps Ur Squamous Epith Cells Ur Transition Epith Cell Urine Bacteria Micro UA Comment Ur Microscopic Review Urine Culture Comments 12/09/17 12/09/17 12/10/17 10:05 10:05 08:00 WBC 12.4 H RBC 3.27 L Hgb 9.8 L Hct 27.3 L MCV 83.6 MCH 29.9 MCHC 35.8 RDW 13.8 Plt Count 263 MPV 8.3 Neut % (Auto) 83.6 H Lymph % (Auto) 6.4 L [place] % (Auto) 9.1 H Eos % (Auto) 0.5 Baso % (Auto) 0.4 Neut # (Auto) 10.4 H Lymph # (Auto) 0.8 L [place] # (Auto) 1.1 H Eos # (Auto) 0.1 Baso # (Auto) 0.0 WBC Differential . Differential Comment Auto diff final Sodium Potassium Chloride Carbon Dioxide Anion Gap BUN Creatinine Estimated GFR POC Glucose Random Glucose Lactic Acid 1.3 Calcium Total Bilirubin AST ALT Alkaline Phosphatase Total Protein Albumin Urine Color Yellow Urine Clarity Cloudy H Urine pH 5.0 Ur Specific [place] 1.012 Urine Protein 100 H Urine Glucose (UA) Negative Urine Ketones 80 or greater H Urine Occult Blood Large H Urine Nitrate Negative Urine Bilirubin Negative Urine Urobilinogen Less than 2 Ur Leukocyte Esterase Large H Urine RBC 43 H Urine WBC Urine WBC Clumps Many H Ur Squamous Epith Cells 1 Ur Transition Epith Cell 1 Urine Bacteria Many H Micro UA Comment Culture indicated Ur Microscopic Review Not Reportable Urine Culture Comments Culture indicated 12/10/17 08:00 WBC RBC Hgb Hct MCV MCH MCHC RDW Plt Count MPV Neut % (Auto) Lymph % (Auto) [place] % (Auto) Eos % (Auto) Baso % (Auto) Neut # (Auto) Lymph # (Auto) [place] # (Auto) Eos # (Auto) Baso # (Auto) WBC Differential Differential Comment Sodium 142 Potassium 3.4 L Chloride 111 H D Carbon Dioxide 20.8 L Anion Gap 10 BUN 5 L Creatinine 0.91 Estimated GFR 88 L POC Glucose Random Glucose 102 Lactic Acid Calcium 7.5 L D Total Bilirubin 0.7 AST 28 ALT 24 Alkaline Phosphatase 58 Total Protein 6.4 D Albumin 2.6 L D Urine Color Urine Clarity Urine pH Ur Specific [place] Urine Protein Urine Glucose (UA) Urine Ketones Urine Occult Blood Urine Nitrate Urine Bilirubin Urine Urobilinogen Ur Leukocyte Esterase Urine RBC Urine WBC Urine WBC Clumps Ur Squamous Epith Cells Ur Transition Epith Cell Urine Bacteria Micro UA Comment Ur Microscopic Review Urine Culture Comments Microbiology 12/09/17 10:00 Blood - Peripheral Anaerobic Blood Culture - Preliminary gram negative rods 12/09/17 10:05 Nasal Wash Influenza Types A,B Antigen - Final Negative for FLU A and B antigen Infection due to influenza A or B cannot be ruled out since the antigen present in the sample may be below the detection limit of the test. - Imaging Impressions Chest X-Ray 12/09/17 09:39 CONCLUSION: No acute cardiopulmonary disease. Assessment and Plan - Plan This patient is a 32-year-old female with a history of sickle cell trait and multiple UTIs in the past. She had a UTI in February 2017 which was positive for ESBL E. coli. She presented yesterday to our emergency department with complaints of suprapubic tenderness and dysuria that has been ongoing for the past few days. She was found to be febrile tachycardic urinalysis was positive for UTI. 1. Sepsis secondary to septicemia likely secondary to urinary tract infection Hx of ESBL E. Coli. The patient's presented with the symptoms mentioned above. She has had 2 episodes of fevers overnight and is tachycardic with a heart rate in the high 90s as well as a systolic blood pressure in the 90s. She will be given a 1 L bolus of normal saline her IV fluid rate will be increased. Continue IV antibiotics blood cultures came back positive with a preliminary report of E. Coli. Continue Invanz. All final cultures will be followed up. Infectious disease has been consulted and will evaluate the patient today will follow up with recommendations from infectious disease.
[2017-12-10] MEDS: Sod Chloride 0.9% Inj 1,000 ML IV.CONT SCH ×4 (10:46→20:34)
--- NOTE | 2017-12-10 18:54 | P.CONID ---
History of Present Illness Service: ID Consult date: 12/10/17 Requesting Physician: Livia Zimmerman Reason for Consult: UTI Primary Care Provider: No Primary Care Physician Chief Complaint: Dysuria, suprapubic pain History of Present Illness: 32 yo F with no past med h/o except ESBL + UTI in February 2017 presents with fever, chills, disuria cloudy urine and very mild vague L flanlk pain UA abnormal with pyuria, blood clx + for E.coli On presentation fever up to 102.8 and WBC 22K started on Ertapenem, improved, now afebrile, WBC down to 12 K Review of Systems All other systems reviewed negative except as stated in HPI PMFSH - History History Provided By: Patient - Medical / Surgical Hx Neg / Unobtainable Medical Problems Denied: Yes - Medical History Medical History: Medical History (Last Reviewed 12/11/17 @ 01:13 by Venus Morley MD) Patient denies medical problems - Surgical History Surgical History: Surgical History (Last Reviewed 12/11/17 @ 01:13 by Venus Morley MD) Previous section - Family History Family History: Family History (Last Reviewed 12/11/17 @ 01:13 by Venus Morley MD) Other Family history of diabetes mellitus Family history of hypertension - Social History I have reviewed the patient's Social History: Yes - Tobacco History Second Hand Smoke Exposure: No Tobacco Use In Past 30 Days: No Smoking Status: Never smoker - Alcohol History How Often Do You Have a Drink Containing Alcohol: Never - Substance Use History Substance History: No History of Abuse - Travel History Recent Travel in the [place] Within the Last 8 Weeks: No Recent Travel Out of the Country Within the Last 8 Weeks: No - Immunization History Tetanus Immunization: >5 Years Medications and Allergies Active Medications: Active Medications Acetaminophen (Tylenol) 650 mg PO Q4H PRN PRN Reason: PAIN 1-10 AND/OR FEVER >101F Last Admin: 12/10/17 15:13 Dose: 650 mg Al Hydroxide/Mg Hydroxide (Milk Of Magnesia Liq) 30 ml PO Q12H PRN PRN Reason: Mild Constipation Heparin Sodium (Porcine) (Heparin Inj) 5,000 units SQ Q12H [place] Last Admin: 12/10/17 15:13 Dose: 5,000 units Sodium Chloride (Ns Inj) 1,000 mls @ 0 mls/hr IV.SIG BOLUS [facility] Last Infusion: 12/09/17 12:28 Dose: Infused Ertapenem 1,000 mg/ Sodium (Chloride) 100 mls @ 100 mls/hr IV.SIG Q24H [facility] Last Admin: 12/10/17 18:50 Dose: 100 mls/hr Sodium Chloride (Ns Inj) 1,000 mls @ 150 mls/hr IV.CONT .Q6H40M [facility] Last Admin: 12/10/17 14:45 Dose: 150 mls/hr Lactobacillus Acidophilus (Lactinex) 1 tab PO TID [facility] Last Admin: 12/10/17 18:51 Dose: 1 tab Ondansetron HCl (Zofran Inj) 4 mg IV.PUSH Q6H PRN PRN Reason: NAUSEA OR VOMITING Allergies Allergy/AdvReac Type Severity Reaction Status Date / Time No Known Allergies Allergy Unknown Uncoded 02/28/17 18:51 Home Medications Medication Instructions Recorded Confirmed Type No Known Home Medications 12/09/17 12/09/17 History Exam Vital signs: Vital Signs 12/09/17 20:00 12/10/17 00:00 12/10/17 04:00 Temperature 99 F 101.7 F H 102.2 F H Pulse Rate 114 H 122 H 112 H Respiratory Rate 20 18 14 Blood Pressure 96/53 L 94/56 L 97/55 L Pulse Oximetry 98 97 98 12/10/17 06:09 12/10/17 08:00 12/10/17 09:30 Temperature 99.0 F 98.6 F Pulse Rate 97 H Respiratory Rate 20 16 Blood Pressure 86/54 L Pulse Oximetry 99 12/10/17 12:00 12/10/17 16:00 Temperature 99.3 F 99.7 F H Pulse Rate 95 H 103 H Respiratory Rate 16 14 Blood Pressure 98/59 L 110/62 Pulse Oximetry 98 99 Intake & Output 12/09/17 12/10/17 12/10/17 18:59 06:59 18:59 Intake Total 2450 / 2450 2421 / 2421 1000 / 1000 Balance 2450 / 2450 2421 / 2421 1000 / 1000 Weight 68.039 kg 73.7 kg Intake: IV 2450 / 2450 1000 / 1000 1000 / 1000 NS Inj 1,000 ML @ 100 mls/hr IV 1000 / 1000 1000 / 1000 .CONT .Q10H [facility] Rx#:[id number] INVanz Inj 1,000 MG In NS Inj 100 / 100 100 ML @ 100 mls/hr IV.SIG Q24H [place] Rx#:[id number] Zosyn 4.5 GM Premix 4.5 gm In 100 / 100 100 ml @ 200 mls/hr IV.SIG STAT [facility] Rx#:[id number] NS Inj 1,000 ML @ Wide Open IV. 1999 SIG BOLUS [place] Rx#:[id number] Vancomycin Inj 1,000 MG In NS 250 / 250 Inj 250 ML @ 250 mls/hr IV.SIG STAT STA Rx#:[id number] Oral 1421 / 1421 Other: # Voids 5 - Constitutional no acute distress, average body habitus - Routine HEENT Exam Head: Present: normocephalic, atraumatic Eye: Present: EOMI, PERRL ENT: Present: mucous membranes moist, dentition normal - Routine Neck Exam Present: supple, full ROM - Routine Respiratory Exam Present: CTA bilaterally Comments: good air movement, good effort - Routine Cardiovascular Exam Present: RRR, S1, S2 Comments: no murmurs rubs or gallops - Routine Abdominal Exam Present: soft, normoactive bowel sounds Comments: not tender not distended - Routine Extremities Exam Comments: no cyanosis clubbing or edema - Routine Back/Spine/Pelvis Exam Comments: no CVA tenderness - Routine Skin Exam Present: intact, dry, warm - Routine Neurological Exam Present: alert, oriented X3, CN II-XII intact, moving all extremities, vision grossly intact, hearing grossly intact, normal speech - Routine Psychiatric Exam Present: normal affect, normal thought process, cooperative Results - Labs CBC & Chem 7: 12/10/17 08:00 12/10/17 08:00 Labs: Laboratory Results - last 24 hr 12/09/17 12/10/17 12/10/17 10:05 08:00 08:00 WBC 12.4 H RBC 3.27 L Hgb 9.8 L Hct 27.3 L MCV 83.6 MCH 29.9 MCHC 35.8 RDW 13.8 Plt Count 263 MPV 8.3 Neut % (Auto) 83.6 H Lymph % (Auto) 6.4 L [place] % (Auto) 9.1 H Eos % (Auto) 0.5 Baso % (Auto) 0.4 Neut # (Auto) 10.4 H Lymph # (Auto) 0.8 L [place] # (Auto) 1.1 H Eos # (Auto) 0.1 Baso # (Auto) 0.0 WBC Differential . Differential Comment Auto diff final Sodium 142 Potassium 3.4 L Chloride 111 H D Carbon Dioxide 20.8 L Anion Gap 10 BUN 5 L Creatinine 0.91 Estimated GFR 88 L Random Glucose 102 Calcium 7.5 L D Total Bilirubin 0.7 AST 28 ALT 24 Alkaline Phosphatase 58 Total Protein 6.4 D Albumin 2.6 L D Urine Color Yellow Urine Clarity Cloudy H Urine pH 5.0 Ur Specific [place] 1.012 Urine Protein 100 H Urine Glucose (UA) Negative Urine Ketones 80 or greater H Urine Occult Blood Large H Urine Nitrate Negative Urine Bilirubin Negative Urine Urobilinogen Less than 2 Ur Leukocyte Esterase Large H Urine RBC 43 H Urine WBC Urine WBC Clumps Many H Ur Squamous Epith Cells 1 Ur Transition Epith Cell 1 Urine Bacteria Many H Micro UA Comment Culture indicated Urine Culture Comments Culture indicated Assessment and Plan - Plan Sepsis 2/2 UTI, E.coli Recurrrent UTI, complicated Previous ESBL+ cont Ertapenem will adjust further abx per clx US kidneys
[2017-12-11] MEDS: Sod Chloride 0.9% Inj 1,000 ML IV.CONT SCH ×2 (00:33→05:45)
[2017-12-11] MEDS: Heparin - SQ 10,000 UNITS/ML Vial SQ SCH ×2 (01:21→16:23)
[2017-12-11 08:23] LABS: Baso % (Auto) 0.4 % (0.0-2.0); Eos # (Auto) 0.1 th/mm3 (0.0-0.4); Eos % (Auto) 1.3 % (0.0-4.0); Hematocrit 26.6 % (35.0-46.0); Hemoglobin 9.3 gm/dL (11.6-15.3); Lymph # (Auto) 1.2 th/mm3 (1.0-4.8); Lymph % (Auto) 14.8 % (9.0-44.0); Mean Corpuscular Hemoglobin 29.4 pg (27.0-34.0); Mean Platelet Volume 7.9 fL (7.0-11.0); Mono # (Auto) 1.1 th/mm3 (0.0-0.9); Mono % (Auto) 13.4 % (0.0-8.0); Neut # (Auto) 5.9 th/mm3 (1.8-7.7); Neut % (Auto) 70.1 % (16.0-70.0); Platelet Count 298 th/mm3 (150-450); Red Blood Count 3.17 mil/mm3 (4.00-5.30); Red Cell Distribution Width 13.9 % (11.6-17.2); White Blood Count 8.4 th/mm3 (4.0-11.0)
[2017-12-11 09:04] LABS: Anion Gap 9 meq/L (5-15); Blood Urea Nitrogen 5 mg/dL (7-18); Calcium 7.3 mg/dL (8.5-10.1); Carbon Dioxide 21.7 meq/L (21.0-32.0); Chloride 112 meq/L (98-107); Glomerular Filtration Rate Greater Than 89 mL/min (>89); Glucose,Random 91 mg/dL (74-106); Magnesium 1.9 mg/dL (1.5-2.5); Potassium 3.2 meq/L (3.5-5.1); Sodium 143 meq/L (136-145)
[2017-12-11 09:45] LABS: Total Protein 5.9 g/dL (6.4-8.2)
[2017-12-11] MEDS: Lactobacillus Acidophilus/L. Spores Tablet PO SCH ×3 (10:10→18:45)
[2017-12-11] MEDS ORDERED: Potassium Chloride 25 MEQ Effervescent Tablet PO ONE (11:00)
--- NOTE | 2017-12-11 11:00 | P.PNIM ---
Subjective Interval history: Patient states that she feels much better today she does not have any other complaints. Physical Exam Vital signs: Vital Signs 12/10/17 12:00 12/10/17 16:00 12/10/17 20:00 Temperature 99.3 F 99.7 F H 98.3 F Pulse Rate 95 H 103 H 98 H Respiratory Rate 16 14 12 Blood Pressure 98/59 L 110/62 99/65 L Pulse Oximetry 98 99 100 12/11/17 00:00 12/11/17 04:00 12/11/17 08:00 Temperature 98.4 F 99.1 F 99.3 F Pulse Rate 93 H 114 H 98 H Respiratory Rate 18 18 16 Blood Pressure 102/59 L 98/58 L 111/66 Pulse Oximetry 92 L 95 96 Intake & Output 12/10/17 12/11/17 12/11/17 18:59 06:59 18:59 Intake Total 1000 / 1000 2099 / 2100 Balance 1000 / 1000 2099 / 2100 Intake: IV 1000 / 1000 2099 / 2100 NS Inj 1,000 ML @ 100 mls/hr IV 1000 / 1000 1999 / 1999 .CONT .Q10H [facility] Rx#:[id number] INVanz Inj 1,000 MG In NS Inj 100 / 100 100 ML @ 100 mls/hr IV.SIG Q24H [facility] Rx#:[id number] Other: # Voids 3 Narrative: General patient in no acute distress HEENT extraocular movements are intact, clear oropharyngeal mucosa, no JVD Cardiovascular S1-S2 audible, tachycardic Respiratory clear to auscultation bilaterally Abdomen soft, nontender, nondistended, normal bowel sounds Extremities no edema 2+ distal pulses in bilateral upper and lower extremities Neuro no neurological deficits Results - Labs CBC & Chem 7: 12/11/17 07:40 12/11/17 07:40 Laboratory Results - last 24 hr 12/09/17 12/11/17 12/11/17 10:05 07:40 07:40 WBC 8.4 RBC 3.17 L Hgb 9.3 L Hct 26.6 L MCV 84.0 MCH 29.4 MCHC 35.0 RDW 13.9 Plt Count 298 MPV 7.9 Neut % (Auto) 70.1 H Lymph % (Auto) 14.8 [place] % (Auto) 13.4 H Eos % (Auto) 1.3 Baso % (Auto) 0.4 Neut # (Auto) 5.9 Lymph # (Auto) 1.2 [place] # (Auto) 1.1 H Eos # (Auto) 0.1 Baso # (Auto) 0.0 WBC Differential . Differential Comment Auto diff final Sodium 143 Potassium 3.2 L Chloride 112 H Carbon Dioxide 21.7 Anion Gap 9 BUN 5 L Creatinine 0.82 Estimated GFR Greater than 89 Random Glucose 91 Calcium 7.3 L* Prot Corrected Calcium 7.9 L Magnesium 1.9 Total Protein 5.9 L Urine Color Yellow Urine Clarity Cloudy H Urine pH 5.0 Ur Specific [place] 1.012 Urine Protein 100 H Urine Glucose (UA) Negative Urine Ketones 80 or greater H Urine Occult Blood Large H Urine Nitrate Negative Urine Bilirubin Negative Urine Urobilinogen Less than 2 Ur Leukocyte Esterase Large H Urine RBC 43 H Urine WBC Urine WBC Clumps Many H Ur Squamous Epith Cells 1 Ur Transition Epith Cell 1 Urine Bacteria Many H Micro UA Comment Culture indicated Urine Culture Comments Culture indicated Microbiology 12/09/17 10:05 Clean Catch Urine Urine Culture - Final Escherichia coli 12/09/17 10:00 Blood - Peripheral Aerobic Blood Culture - Preliminary No growth in 1 day 12/09/17 10:00 Blood - Peripheral Anaerobic Blood Culture - Preliminary Escherichia coli 12/09/17 10:05 Blood - Peripheral Aerobic Blood Culture - Preliminary No growth in 1 day 12/09/17 10:05 Blood - Peripheral Anaerobic Blood Culture - Preliminary No growth in 1 day Assessment and Plan - Plan This patient is a 32-year-old female with a history of sickle cell trait and multiple UTIs in the past. She had a UTI in February 2017 which was positive for ESBL E. coli. She presented yesterday to our emergency department with complaints of suprapubic tenderness and dysuria that has been ongoing for the past few days. She was found to be febrile tachycardic urinalysis was positive for UTI. 1. Sepsis secondary to septicemia secondary to E. coli 2. E. coli UTI Hx of ESBL E. Coli. The patient was evaluated today she states that she feels better than she did when arriving to our facility. Infectious diseases call following the patient. She has remained afebrile over the past 24 hours other than a low-grade temp early this morning. Blood cultures came back positive for E. coli which is sensitive to Rocephin. Ertapenem will be discontinued and Rocephin will be initiated. An ultrasound of the kidneys was also ordered infectious disease. Will follow up with infectious disease for further recommendations. 3. Electrolyte abnormalities Potassium and magnesium were replaced. Corrected calcium within low normal range.
[2017-12-11] MEDS: Mag Sulf 1 gm/100 ml Premix 100 ML IV.SIG SCH ×2 (11:26→16:24)
[2017-12-11] MEDS: Sodium Chloride 0.45 % Inj 1,000 ML IV.CONT SCH ×2 (11:28→20:38)
--- NOTE | 2017-12-11 12:13 | ECG ---
Date Performed: 12/09/2017 Time Performed: 19:24:50 PTAGE: 32 years EKG: SINUS TACHYCARDIA POSSIBLE LEFT ATRIAL ENLARGEMENT NONSPECIFIC T-WAVE ABNORMALITY ABNORMAL RHYTHM ECG NO PREVIOUS TRACING DOCTOR: Buster Escalera Interpretating Date/Time 12/11/2017 12:10:19
--- NOTE | 2017-12-11 13:51 | US ---
EXAM DATE: 12/11/2017 1:41 PM EDT AGE/SEX: 32 years / Female INDICATIONS: Urinary sepsis. CLINICAL DATA: This is the patient's initial encounter. Patient reports that signs and symptoms have been present for 1 day and indicates a pain score of 3/10. MEDICAL/SURGICAL HISTORY: None. None. COMPARISON: No prior exams available for comparison. MEASUREMENTS: Right Kidney:__10.8 x 5.7 x 5.5 cm Left Kidney:__12.0 x 6.0 x 5.9 cm FINDINGS: Right Kidney: Normal echotexture and cortical thickness. No mass or hydronephrosis. Left Kidney: Normal echotexture and cortical thickness. No mass or hydronephrosis. Bladder: Within normal limits given the degree of distension. Other: None. CONCLUSION: 1. Negative renal sonogram. Electronically signed by: Hubert Barajas MD 12/11/2017 1:49 PM EDT
[2017-12-11] MEDS: Acetaminophen 325 MG Tablet PO PRN (16:02)
--- NOTE | 2017-12-11 18:01 | P.PNID ---
Subjective Remarks: doing well afebrile growing E.coli in urine clx, not ESBL BC Ecoli, sensies still P Antibiotics: Ertapenam Allergies/Adverse Reactions: Allergies No Known Allergies Allergy (Unknown, Uncoded 02/28/17 18:51) Objective Vital Signs 12/10/17 20:00 12/11/17 00:00 12/11/17 04:00 Temperature 98.3 F 98.4 F 99.1 F Pulse Rate 98 H 93 H 114 H Respiratory Rate 12 18 18 Blood Pressure 99/65 L 102/59 L 98/58 L Pulse Oximetry 100 92 L 95 12/11/17 08:00 12/11/17 12:00 12/11/17 16:00 Temperature 99.3 F 98.8 F 98.0 F Pulse Rate 98 H 87 90 Respiratory Rate 16 16 18 Blood Pressure 111/66 102/66 106/70 Pulse Oximetry 96 100 100 Intake & Output 12/10/17 12/11/17 12/11/17 18:59 06:59 18:59 Intake Total 1000 / 1000 2100 / 2100 100 / 100 Balance 1000 / 1000 2100 / 2100 100 / 100 Intake: IV 1000 / 1000 2100 / 2100 100 / 100 NS Inj 1,000 ML @ 100 mls/hr IV 1000 / 1000 2000 / 2000 .CONT .Q10H [facility] Rx#:[id number] INVanz Inj 1,000 MG In NS Inj 100 / 100 100 ML @ 100 mls/hr IV.SIG Q24H [facility] Rx#:[id number] Magnesium Sulfate 1 gm/D5W 100 100 / 100 ml Premix 100 ML @ 100 mls/hr IV.SIG Q1H [facility] Rx#:[id number] Other: # Voids 3 12/09/17 10:00 Blood - Peripheral Aerobic Blood Culture - Preliminary No growth in 2 days 12/09/17 10:00 Blood - Peripheral Anaerobic Blood Culture - Preliminary Escherichia coli 12/09/17 10:05 Blood - Peripheral Aerobic Blood Culture - Preliminary No growth in 2 days 12/09/17 10:05 Blood - Peripheral Anaerobic Blood Culture - Preliminary No growth in 2 days 12/09/17 10:05 Clean Catch Urine Urine Culture - Final Escherichia coli 12/09/17 10:05 Nasal Wash Influenza Types A,B Antigen - Final Negative for FLU A and B antigen Infection due to influenza A or B cannot be ruled out since the antigen present in the sample may be below the detection limit of the test. Lab - Hematology Results 12/10/17 12/11/17 08:00 07:40 WBC 12.4 H 8.4 RBC 3.27 L 3.17 L Hgb 9.8 L 9.3 L Hct 27.3 L 26.6 L MCV 83.6 84.0 MCH 29.9 29.4 MCHC 35.8 35.0 RDW 13.8 13.9 Plt Count 263 298 MPV 8.3 7.9 Neut % (Auto) 83.6 H 70.1 H Lymph % (Auto) 6.4 L 14.8 [place] % (Auto) 9.1 H 13.4 H Eos % (Auto) 0.5 1.3 Baso % (Auto) 0.4 0.4 Neut # (Auto) 10.4 H 5.9 Lymph # (Auto) 0.8 L 1.2 [place] # (Auto) 1.1 H 1.1 H Eos # (Auto) 0.1 0.1 Baso # (Auto) 0.0 0.0 WBC Differential . . Differential Comment Auto diff final Auto diff final Lab - Chemistry Results 12/10/17 12/11/17 08:00 07:40 Sodium 142 143 Potassium 3.4 L 3.2 L Chloride 111 H D 112 H Carbon Dioxide 20.8 L 21.7 Anion Gap 10 9 BUN 5 L 5 L Creatinine 0.91 0.82 Estimated GFR 88 L Greater than 89 Random Glucose 102 91 Calcium 7.5 L D 7.3 L* Prot Corrected Calcium 7.9 L Magnesium 1.9 Total Bilirubin 0.7 AST 28 ALT 24 Alkaline Phosphatase 58 Total Protein 6.4 D 5.9 L Albumin 2.6 L D Imaging: ITS Impressions Chest X-Ray 12/09/17 09:39 CONCLUSION: No acute cardiopulmonary disease. Abdomen/Bladder Ultrasound 12/11/17 00:00 CONCLUSION: 1. Negative renal sonogram. Physical Exam: GENERAL: NAD appears well SKIN: Warm and dry. N rash EYES: No scleral icterus. No injection or drainage. ENT: Mucous membranes pink and moist. RESPIRATORY: No accessory muscle use. GASTROINTESTINAL: Abdomen soft, non-tender, nondistended. MUSCULOSKELETAL: Extremities without clubbing, cyanosis, or edema. No obvious deformities. NEUROLOGICAL: Awake and alert. NOn focal PSYCHIATRIC: calm , cooperative Assessment and Plan - Plan Sepsis 2/2 UTI, E.coli Recurrrent UTI, complicated E.coli singh S US kidneys w/o pathology Previous ESBL+ cont Ertapenem If blood clx isolate S to Levaquin will switch to levaquin or cipro (7 days) PO pt was counselled on side effects of levaquine including tenosynovitis and C.diff, and decreased absorbtion with certain foods and vitamins at the time of administration Levaquine
[2017-12-12] MEDS: Heparin - SQ 10,000 UNITS/ML Vial SQ SCH (01:40)
[2017-12-12] MEDS: Sodium Chloride 0.45 % Inj 1,000 ML IV.CONT SCH ×2 (01:42→09:54)
[2017-12-12] MEDS: Lactobacillus Acidophilus/L. Spores Tablet PO SCH ×2 (08:27→12:05)
--- NOTE | 2017-12-12 12:43 | P.DS ---
Date of admission: 12/09/17 13:44 Primary care physician: No Primary Care Physician Brief History from admission: This patient is a 40-year-old female with a past medical history of sickle cell trait. She has a history of multiple UTIs and was previously seen at our facility in February 2017. At that time the patient's urine culture grew ESBL E. coli. She presented to our emergency department today with 3 day history of dysuria and mild suprapubic pain. She states that her symptoms began during her menstrual cycle. She will she states that she is sexually active with one partner and her symptoms usually begin a couple of days after intercourse. DS: Diagnosis - Discharge Diagnosis (1) E. coli UTI (urinary tract infection) Status: Acute (2) Septicemia due to E. coli Status: Acute DS: Medications - Discharge Medications Prescriptions: ciprofloxacin HCl 500 mg PO BID #14 tab DS: Summary Hospital Course: This patient is a 40-year-old female with a past medical history of sickle cell trait. She has a history of multiple UTIs and was previously seen at our facility in February 2017. At that time the patient's urine culture grew ESBL E. coli. She presented to our emergency department today with 3 day history of dysuria and mild suprapubic pain. She states that her symptoms began during her menstrual cycle. She will she states that she is sexually active with one partner and her symptoms usually begin a couple of days after intercourse. 1. Sepsis secondary to E. coli UTI and septicemia. The patient was found to be tachycardic, febrile, and had an elevated WBC count on admission. Sepsis panel was initiated, including IV fluids and IV antibiotics.. Blood cultures were drawn, as well as a urinalysis and chest x- ray. The urinalysis was consistent with a urinary tract infection. 2 sets of blood cultures came back positive for E. coli. Urine culture was positive for E. coli. She has received 3 days of IV antibiotics in-house. Blood culture and urine culture sensitivities returned pansensitive. Infectious disease did evaluate the patient while she was in-house. Ultrasound of bilateral kidneys were normal. Recommendations from infectious disease are to continue the patient with 7 more days of p.o. antibiotics. She will be discharged on ciprofloxacin 500 mg twice daily for 7 more days. She was advised to follow-up with her primary care physician in the next week. If the patient continues to have urinary tract infections after sexual activity she may benefit from prophylactic antibiotics. - Time Spent with Patient Total time spent providing and/or coordinating discharge services: Less than 30 minutes Exam Vital signs: Vital Signs 12/11/17 16:00 12/11/17 20:00 12/12/17 00:00 Temperature 98.0 F 98.0 F 98.6 F Pulse Rate 90 87 86 Respiratory Rate 18 18 18 Blood Pressure 106/70 104/72 117/76 Pulse Oximetry 100 100 100 12/12/17 04:00 12/12/17 08:00 12/12/17 09:00 Temperature 98.2 F 98.7 F Pulse Rate 85 93 H 78 Respiratory Rate 16 20 Blood Pressure 110/70 115/71 Pulse Oximetry 100 98 12/12/17 12:00 Temperature 97.7 F Pulse Rate 86 Respiratory Rate 20 Blood Pressure 102/66 Pulse Oximetry 100 Intake & Output 12/11/17 12/12/17 12/12/17 18:59 06:59 18:59 Intake Total 100 / 100 2700 / 2700 100 / 100 Balance 100 / 100 2700 / 2700 100 / 100 Weight 74 kg Intake: IV 100 / 100 2700 / 2700 100 / 100 1/2 Normal Saline Inj 1,000 ML 2500 / 2500 @ 125 mls/hr IV.CONT .Q8H [facility] Rx#:[id number] Magnesium Sulfate 1 gm/D5W 100 100 / 100 100 / 100 ml Premix 100 ML @ 100 mls/hr IV.SIG Q1H [place] Rx#:[id number] Rocephin Inj 1,000 MG In NS Inj 100 / 100 100 ML @ 200 mls/hr IV.SIG [facility] Rx#:[id number] Rocephin Inj 2,000 MG In NS Inj 100 / 100 100 ML @ 200 mls/hr IV.SIG Q24H [facility] Rx#:[id number] Other: # Voids 3 Results Procedures completed during hospitalization: none Labs on day of discharge: Preliminary micro results at discharge 12/09/17 10:00 Aerobic Blood Culture - Preliminary Blood - Peripheral No growth in 3 days 12/09/17 10:05 Aerobic Blood Culture - Preliminary Blood - Peripheral No growth in 3 days Anaerobic Blood Culture - Preliminary No growth in 3 days - Impressions ITS Impressions Chest X-Ray 12/09/17 09:39 CONCLUSION: No acute cardiopulmonary disease. Abdomen/Bladder Ultrasound 12/11/17 00:00 CONCLUSION: 1. Negative renal sonogram. Discharge Plan - Discharge Disposition Patient Disposition: 01 Discharge Home - Discharge Condition Condition: Good - Discharge Order Discharge Orders: Discharge Order (Routine); Ordered 12/12/17 Ordered By: Nella Pinzon - Physicians Team Primary Care Provider: Primary Care Brook Paul Attending Provider: Gino Blackman Other Providers: Venus Morley MD
== END 2017-12-12 13:16 | disposition home or self-care (01) ==
LOC: NEPC 09:18 → NEDA 13:44 → INTOOBSV 13:45 → N05 15:30
PROVIDERS: ADMIT Family Medicine; ATTEND Family Medicine
DX: D57.3 Sickle-cell trait; Z86.19 Personal history of other infectious and parasitic diseases; N39.0 Urinary tract infection, site not specified; R30.0 Dysuria; R00.0 Tachycardia, unspecified; A41.51 Sepsis due to Escherichia coli [E. coli]; Z87.440 Personal history of urinary (tract) infections